=== PATIENT | male | born 1985 | race Caucasian/White ===

== ENCOUNTER 2024-08-26 09:41 | Emergency (ER) | payer MEDICAID ==
[~2024-08-26] VITALS: Ht 177.8 cm; Wt 110.0 kg
[2024-08-26 10:39] LABS: BASOPHILS % (AUTO) 0.5 % (0-1); EOSINOPHILS # (AUTO) 0.2 X10'3 (0-0.9); EOSINOPHILS % (AUTO) 2.9 % (0-6); HEMATOCRIT 42.2 % (42.0-52.0); HEMOGLOBIN 14.5 g/dl (14.0-17.9); LYMPHOCYTES # (AUTO) 1.7 X10'3 (1.1-4.8); LYMPHOCYTES % (AUTO) 30.9 % (21-51); MEAN CORPUSCULAR HEMOGLOBIN 29.6 PG (27.0-31.0); MEAN CORPUSCULAR HGB CONC 34.4 g/dL (33.0-36.5); MEAN CORPUSCULAR VOLUME 85.9 FL (78-98); MONOCYTES # (AUTO) 0.5 X10'3 (0-0.9); MONOCYTES % (AUTO) 8.3 % (2-12); NEUTROPHILS # (AUTO) 3.2 X10'3 (1.8-7.7); NEUTROPHILS % (AUTO) 57.4 % (42-75); PLATELET COUNT 223 X10'3 (140-440); RED BLOOD COUNT 4.92 X10'6 (4.70-6.10); RED CELL DISTRIBUTION WIDTH 13.6 % (11.5-14.5); WHITE BLOOD COUNT 5.6 X10'3 (4.5-11.0)
[2024-08-26 11:01] LABS: ALBUMIN 3.7 G/DL (3.4-5.0); ANION GAP 9 (8-16); BLOOD UREA NITROGEN 14 MG/DL (7-18); BUN/CREATININE RATIO 11.2 (10.0-20.0); CALCIUM 8.5 MG/DL (8.5-10.1); CHLORIDE 106 MMOL/L (99-107); CREATININE 1.25 MG/DL (0.60-1.10); GLUCOSE 180 MG/DL (70-104); POTASSIUM 3.6 MMOL/L (3.5-5.1); SODIUM 141 MMOL/L (135-145); TOTAL CARBON DIOXIDE 26.3 MMOL/L (24-32); eCRCL 81 ML/MIN; eGFR 64 ML/MIN
[2024-08-26] MEDS ORDERED: iohexol 300mg/ml 100ml inj. ONE (11:38)
[2024-08-26 12:33] LABS: BILIRUBIN,URINE NEGATIVE (Neg); CLARITY,URINE CLEAR (Clear); COLOR,URINE YELLOW (Yellow); GLUCOSE, URINE NEGATIVE (Neg); KETONES,URINE NEGATIVE (Neg); LEUKOCYTE ESTERASE ,URINE NEGATIVE (Neg); NITRITES, URINE NEGATIVE (Neg); OCCULT BLOOD,URINE NEGATIVE (Neg); PROTEIN,URINE NEGATIVE (Neg); UROBILINOGEN,URINE 0.2 E.U/dL (0.2-1.0)
[2024-08-26 12:41] LABS: UA COLLECTION TYPE CLN CATCH MIDSTREAM
[2024-08-26] MEDS: normal saline 1000ml 1,000 ML IV ONE (13:30)
[2024-08-26] MEDS: ondansetron/PF 4mg/2ml inj IV ONE (13:32)
[2024-08-26] MEDS: morphine 4 MG/ML inj SYRINge IV ONE (13:33)
[2024-08-26] MEDS: CefTRIAXone/D5W-Rocephin 1gm 50 ML IV ONE (13:34)
[2024-08-26] MEDS: clindamycin 300mg/D5W 50mL 50 ML IV STA (13:55)
[2024-08-26] MEDS ORDERED: [UNRECOGNIZED DRUG - CODE] PO (13:57)
[2024-08-26 14:54] VITALS: BP 144/84; PULSE 78; RESP 18; TEMP 98.1; O2SAT 95
== END 2024-08-26 14:55 | disposition home or self-care (01) ==
LOC: ER 09:41
DX: K91.89 Other postprocedural complications and disorders of digestive system (principal); T85.848A Pain due to other internal prosthetic devices, implants and grafts, initial encounter; Y83.8 Other surgical procedures as the cause of abnormal reaction of the patient, or of later complication, without mention of misadventure at the time of the procedure; Y92.89 Other specified places as the place of occurrence of the external cause
CPT/HCPCS: 36415; 71260; 74177; 80048; 81003; 83605; 84145; 85025; 87040; 96365; 96368; 96375; 99285; J0696; J2270; J2405; J3490; J7030; Q9967